=== PATIENT | female | born 1980 | race Caucasian/White ===

== ENCOUNTER 2016-09-12 21:36 | Emergency (ER) | payer OTHER ==
[~2016-09-12] VITALS: Ht 167.6 cm; Wt 107.8 kg
[2016-09-12 21:46] VITALS: TEMP 37.2; Ht 167.6 cm; Wt 107.8 kg
[2016-09-12] MEDS ORDERED: FLEXERIL HOME PACK 10 MG VIAL PO ONE (22:30)
[2016-09-12] MEDS ORDERED: PRED50TA PO (22:49)
[2016-09-12] MEDS ORDERED: CYCL10TA6 PO (22:49)
--- NOTE | 2016-09-12 22:49 | EMERGENCY ROOM VISIT NOTE ---
ED Visit Note First contact with patient: 21:53 Chief Complaint: Sever Middle Low Back Pain History of Present Illness: Patient is a 36-year-old female who presents to the emergency permit this evening for evaluation of her middle to low back pain. She reports a long-standing history of back pain issues. She was managed by her former primary care provider most recently with Percocet. She recently changed providers and reports that she was stopped from her narcotic pain medications. She has referral to pain management on the or 26 of September in the [place] where she is from. She reports that her pain has worsened which is made changes in position as well as sleeping difficult. She has tried over- the-counter medications for her symptoms. She reports no new trauma or injuries to her spine. She's had x-rays as well as an MRI within the past year. The patient rates her current discomfort as a 6/10. She denies any new symptoms. She denies any loss of control bowel/bladder saddle anesthesia. She denies any fevers, chills, abdominal pain, nausea, vomiting, abdominal pain, hematochezia, melena, hematuria, or dysuria. Medications: Reviewed and discussed with the patient. Allergies: NSAIDs, tramadol PMH: No pertinent past medical history. SHx: Patient is a 36-year-old female who lives locally. ROS: All pertinent positive and negative review of systems are appropriately documented in the History of Present Illness. Physical Exam: VITAL SIGNS - Vital signs and nursing notes were reviewed. GENERAL - 36-year-old female appearing her stated age and in noticeable discomfort throughout the exam. NECK - FROM of the cervical spine. ABDOMEN - Abdominal contour obese without pulsations or visible masses. BS normoactive all four quadrants. No tenderness, palpable masses, hepatosplenomegaly, or ascites noted. MUSCULOSKELETAL - ROM of the thoracolumbar spine region was limited secondary to patient's subjective discomfort. Pt was seated on the exam table. Pt made guarded movements when asked to change position. No step-off deformities were palpated down the thoracolumbar spines. Moderate subjective Tenderness to Palpation experienced at the level of the lumbar paraspinal muscle distribution. No reproducible tenderness to palpation across the iliac spine. NEUROLOGIC - REFLEXES: +2/4 patellar reflexes B/L. SENSORY: Spinothalamic tract was found to be intact with ability to discriminate sharp versus dull sensation at the level of hip joint down do the great toe. No sensory defects of the dorsal column were appreciated utilizing light touch for evaluation. CEREBELLAR: Pt able to perform rapid alternating movements of the feet. EXTREMITIES - Range of Motion - No tremors, ticks, or fasciculations of the lower extremities noticed during inspection. Pt had +5/5 strength appreciated bilaterally in the lower extremities against examiner's resistance. VASCULAR - Capillary refill of the great toe was brisk. No mottling or blanching of the extremities present. +3/5 dorsalis pedis pulses palpated bilaterally. ED Course: Patient was seen and evaluated by myself. I had a lengthy discussion with the patient regarding her ongoing management. She was provided a home pack for Flexeril as well as prednisone for breakthrough symptoms. She was provided prednisone and Flexeril for home. I had a lengthy discussion with the patient regarding continued management for her chronic pain condition. I'm not comfort provided the patient any further narcotic medication. The patient was educated on worrisome symptoms for return visit to the emergency department. Patient discharged home in good condition. In the evaluation and treatment of this patient the following differential diagnoses were considered: Cauda equina syndrome, discitis, HNP, sciatica, epidural abscess, psoas abscess, musculoskeletal strain, lumbar fracture, lumbar dislocation, lumbar subluxation, spondylolisthesis, spondylosis, or compression fracture. Given the patient's presentation and stated complaint, I did elect to perform the above-mentioned workup. The patient presents today with ongoing backache symptoms. In a conversation with the patient, the patient has recently been discontinued from her narcotic medications. She has chronic back pain issues. She has referral to pain management within the next several days. I'm not comfortable providing narcotic pain medications at this point. She is provided Flexeril as well as prednisone for home. She'll follow-up with her primary care provider or return for any changing/worsening symptoms. Patient discharged home afebrile and in good condition. Impression: Acute exacerbation of chronic low back pain Discharge Instructions: You have been treated in the Emergency Department for Back Pain. You have been prescribed Prednisone 50 mg to be taken orally once a day for the next 4 days. This is an anti-inflammatory medicine to be used to help minimize your symptoms. You should take the COMPLETE course of the medication. You have been prescribed Flexeril (cyclobenzaprine) 1-2 tabs orally, three times per day. Do NOT exceed 30 mg (6 tabs) per day. Take your first dose at bedtime as it can make you drowsy. Always take all medications as prescribed. For pain control, you can use the following bean-kfm-sgrfjkx medicines (if >12 yo): - Regular strength (325mg/tab) Tylenol (acetaminophen) 2 tabs every 4-6 hours as needed. Do not exceed 12 tablets in a 24 hour period. Avoid taking more than 4 grams (4000 mg) of Tylenol per day. This includes any other sources of acetaminophen you may take on a regular basis. - Regular strength (200 mg/tab) Advil (ibuprofen) 1-2 tabs every 4-6 hours as needed. Do not exceed a dose of 3200 mg per day. If this is an acute injury, ice can be applied to the area of pain for the first 3 days to help decrease pain and inflammation. After the first 3 days, a heating pad can be used over the area for continued soothing relief. You should schedule a follow-up appointment in 2-3 days with your Primary Care Provider for further evaluation and treatment of your back pain. Return to the Emergency Department if your current symptoms worsen despite treatment course outlined above, or if you develop any of the following symptoms : intractable pain despite aforementioned treatment course, loss of control of your bowel or bladder, numbness or tingling in your groin, or development of a fever. Current/Historical Medications Scheduled Cholecalciferol (Vitamin D), Unknown Dose PO 3XWK Cyclobenzaprine Hcl (Flexeril), 10 MG PO TID Ferrous Sulfate (Ferrous Sulfate), 650 MG PO BID Lurasidone Hcl (Latuda), 40 MG PO HS Prednisone (Prednisone), 50 MG PO DAILY Sertraline (Zoloft), 150 MG PO DAILY Allergies Coded Allergies: Aripiprazole (Verified Allergy, Severe, SEIZURES, 09/12/16) Bupropion (Verified Allergy, Severe, SEIZURES, 09/12/16) NSAIDs (Verified Adverse Reaction, Unknown, gastric bypass, 09/12/16) Tramadol (Verified Adverse Reaction, Unknown, gastric bypass, 09/12/16) Vital Signs Date Time Temp Pulse Resp B/P Pulse Ox O2 Delivery O2 Flow Rate FiO2 09/12/16 22:54 81 18 131/79 100 Room Air 09/12/16 21:46 37.2 88 20 153/87 100 Room Air Medications Administered Medications (Trade) Dose Ordered Sig/Connie Route Start Time Stop Time Status Last Admin Dose Admin Cyclobenzaprine HCl (FLEXERIL 10MG Home Pack) 1 homepack UD ONCE PO 09/12/16 22:30 09/12/16 22:31 DC 09/12/16 22:30 1 HOMEPACK Prednisone (PredniSONE TAB) 60 mg NOW STAT PO 09/12/16 22:26 09/12/16 22:28 DC 09/12/16 22:51 60 MG Departure Information Impression Primary Impression: Acute exacerbation of chronic low back pain Dispostion Home / Self-Care Condition GOOD Prescriptions Prednisone (Prednisone) 50 Mg Tab 50 MG PO DAILY for 4 Days, #4 TAB Prov: Dileep Forte PA-C 09/12/16 Cyclobenzaprine Hcl (FLEXERIL) 10 Mg Tab 10 MG PO TID for 5 Days, #15 TAB Prov: Dileep Forte PA-C 09/12/16 Referrals Anabel Jason PA-C (PCP) Patient Instructions My [facility] Additional Instructions You have been treated in the Emergency Department for Back Pain. You have been prescribed Prednisone 50 mg to be taken orally once a day for the next 4 days. This is an anti-inflammatory medicine to be used to help minimize your symptoms. You should take the COMPLETE course of the medication. You have been prescribed Flexeril (cyclobenzaprine) 1-2 tabs orally, three times per day. Do NOT exceed 30 mg (6 tabs) per day. Take your first dose at bedtime as it can make you drowsy. Always take all medications as prescribed. For pain control, you can use the following itir-cta-pcmuxae medicines (if >12 yo): - Regular strength (325mg/tab) Tylenol (acetaminophen) 2 tabs every 4-6 hours as needed. Do not exceed 12 tablets in a 24 hour period. Avoid taking more than 4 grams (4000 mg) of Tylenol per day. This includes any other sources of acetaminophen you may take on a regular basis. - Regular strength (200 mg/tab) Advil (ibuprofen) 1-2 tabs every 4-6 hours as needed. Do not exceed a dose of 3200 mg per day. If this is an acute injury, ice can be applied to the area of pain for the first 3 days to help decrease pain and inflammation. After the first 3 days, a heating pad can be used over the area for continued soothing relief. You should schedule a follow-up appointment in 2-3 days with your Primary Care Provider for further evaluation and treatment of your back pain. Return to the Emergency Department if your current symptoms worsen despite treatment course outlined above, or if you develop any of the following symptoms : intractable pain despite aforementioned treatment course, loss of control of your bowel or bladder, numbness or tingling in your groin, or development of a fever.
[2016-09-12 22:54] VITALS: BP 131/79; PULSE 81; O2SAT 100
[2016-09-12] MEDS ORDERED: SERT-234 PO (22:54)
[2016-09-12] MEDS ORDERED: FRRS300 PO (22:54)
[2016-09-12] MEDS ORDERED: CHOL100010 PO (22:54)
[2016-09-12] MEDS ORDERED: LURA40TA PO (22:54)
== END 2016-09-12 22:52 | disposition home or self-care (01) ==
LOC: C.EDB 21:38 → C.EDD 22:52
DX: M54.5 Low back pain (principal); G89.29 Other chronic pain; E66.9 Obesity, unspecified; Z79.899 Other long term (current) drug therapy; Z68.38 Body mass index [BMI] 38.0-38.9, adult

== ENCOUNTER 2016-10-31 23:14 | Emergency (ER) | payer OTHER ==
[~2016-10-31] VITALS: Ht 167.6 cm; Wt 109.4 kg
[~2016-10-31 23:14] MED LIST: CHOL100010 PO; FRRS300 PO; LURA40TA PO; SERT-234 PO
[2016-10-31 23:16] VITALS: TEMP 36.8; Ht 167.6 cm; Wt 109.4 kg
[2016-10-31] MEDS ORDERED: MoRPHine SULFATE 4 MG/ML 1 ML CARP\\VIAL IV STA (23:28)
[2016-10-31] MEDS ORDERED: ONDANSETRON INJ 2 MG/ML 2 ML VIAL IV STA (23:28)
[2016-10-31] MEDS ORDERED: SODIUM CHLORIDE 0.9% 1000ML 1,000 ML IV STA ×2 (23:28)
[2016-10-31] MEDS ORDERED: VANCOMYCIN IV STA (23:34)
[2016-10-31] MEDS ORDERED: PIPERACILLIN/TAZOBACTAM 4.5 GM/100ML D5W IV STA (23:34)
[2016-10-31] MEDS ORDERED: SODIUM CHLORIDE 0.9% IV STA (23:34)
[2016-10-31] MEDS ORDERED: OPTIRAY 320 IV PRN (23:45)
[2016-10-31] MEDS ORDERED: CYCL10TA6 PO (23:53)
[2016-11-01 00:30] LABS: ISTAT CREATININE 0.6 mg/dl (0.6-1.3); ISTAT HEMOGLOBIN 10.2 g/dl (12.0-16.0); ISTAT IONIZED CALCIUM 1.17 mmol/l (1.12-1.32)
[2016-11-01 00:32] VITALS: O2SAT 99
[2016-11-01 01:07] LABS: PREG INTERNAL NEGATIVE QC NEG CLEAR BACKGROUND; PREG INTERNAL POSITIVE QC POS CONTROL LINE
[2016-11-01 01:17] LABS: BASO % 0.6 %; BASO ABS # 0.03 K/uL (0-0.2); COMPLETE YES; HEMATOCRIT 31.6 % (37-47); IG% 0.2 %; LYMPH % 30.7 %; LYMPH ABS # 1.56 K/uL (1.2-3.4); MEAN CORPUSCULAR HGB CONC 30.4 g/dl (32-36); MONO % 9.6 %; NEUT % 55.9 %; PLATELET COUNT 318 K/uL (130-400); WHITE BLOOD COUNT 5.08 K/uL (4.8-10.8)
[2016-11-01 01:26] LABS: PARTIAL THROMBOPLASTIN RATIO 1.1; PROTHROMBIN TIME (PATIENT) 10.9 SECONDS (9.0-12.0)
[2016-11-01 01:36] LABS: BUN/CREATININE RATIO 20.4 (10-20); CALCIUM 8.3 mg/dl (8.5-10.1); CREATININE 0.53 mg/dl (0.60-1.20); POTASSIUM 4.1 mmol/L (3.5-5.1)
[2016-11-01 01:39] LABS: ALB/GLOB RATIO 0.7 (0.9-2)
[2016-11-01] MEDS ORDERED: PIPERACILLIN/TAZOBACTAM 4.5 GM/100ML D5W ONE (01:52)
[2016-11-01] MEDS ORDERED: OXYCODONE IR HOME PACK PO ONE (03:15)
[2016-11-01] MEDS ORDERED: AMOXICIL/CLAVU 875MG HOME PACK PO ONE (03:15)
[2016-11-01] MEDS ORDERED: AMOX875T PO (03:19)
--- NOTE | 2016-11-01 03:19 | EMERGENCY ROOM VISIT NOTE ---
History First contact with patient: 23:21 Chief Complaint: ABDOMINAL PAIN Stated Complaint: SEVERE LEFT SIDE ABDOMINAL PAIN Nursing Triage Summary: pt with gastric bypass surger in 2013. had skin removal surgery 4 weeks ago. had ALVERTO drain removed on Monday. has been having increased abdominal swelling and pain since. swelling and hardness at surgical site, mid abdomen. draining moderate amounts of clear/yellow fluid. History of Present Illness The patient is a 36 year old female who presents to the Emergency Room with complaints of fever, chills, severe abdominal pain with drainage from incisional site for the past day. Patient had skin removal from excess skin from gastric bypass 1 month ago. ALVERTO drain was removed 2 days ago. The surgeon is in [place]. No temperature was taken. She describes pain as aching, ranging in severity 8 out of 10. Throughout the abdomen. Nothing makes it better or worse. Patient denies chest pain, dyspnea, cough, congestion, back pain, urinary symptoms. She is tolerated by mouth fluids and food. Normal bowel movement. Review of Systems See HPI for pertinent positives & negatives. A total of 10 systems reviewed and were otherwise negative. Past Medical/Surgical History Gastric bypass Social History Smoking Status: Former Smoker Drug Use: none Marital Status: Housing Status: lives with family Current/Historical Medications Scheduled Cholecalciferol (Vitamin D), Unknown Dose PO 3XWK Ferrous Sulfate (Ferrous Sulfate), 650 MG PO BID Lurasidone Hcl (Latuda), 60 MG PO HS Sertraline (Zoloft), 150 MG PO DAILY Scheduled PRN Cyclobenzaprine Hcl (Flexeril), 10 MG PO BID PRN for Muscle Spasms Allergies Coded Allergies: Aripiprazole (Verified Allergy, Severe, SEIZURES, 10/31/16) Bupropion (Verified Allergy, Severe, SEIZURES, 10/31/16) NSAIDs (Verified Adverse Reaction, Unknown, gastric bypass, 10/31/16) Tramadol (Verified Adverse Reaction, Unknown, gastric bypass, 10/31/16) Physical Exam Vital Signs Date Time Temp Pulse Resp B/P Pulse Ox O2 Delivery O2 Flow Rate FiO2 11/01/16 02:03 74 18 132/61 100 Room Air 11/01/16 00:32 99 Room Air 11/01/16 00:29 78 20 120/62 99 10/31/16 23:16 36.8 92 20 141/90 100 Room Air Physical Exam VITALS: Vitals are noted on the nurse's note and reviewed by myself. Vital signs stable. GENERAL: Pleasant female, in no acute distress, nondiaphoretic, well-developed well-nourished. SKIN: Midline incision with serosanguineous drainage and wound culture was obtained with minimal erythema The~ skin was without rashes, erythema, edema, or bruising. There is no tenting of the skin. Capillary reflex less than 2 seconds. HEAD: Normocephalic atraumatic. EARS: External auditory canals clear, tympanic membranes pearly rizo without erythema or effusion bilaterally. EYES: Pupils equal round and reactive to light and accommodation. Conjunctivae without injection, sclerae without icterus. Extraocular movements intact. NOSE: Patent, turbinates without inflammation or discharge. MOUTH: Mucous membranes moist. Pharynx without erythema or exudate. Uvula midline. Airway patent. Tongue does not deviate. NECK: Supple without nuchal rigidity. No lymphadenopathy. No thyromegaly. Cervical spine is nontender. No JVD. HEART: Regular rate and rhythm without murmurs gallops or rubs. LUNGS: Clear to auscultation bilaterally without wheezes, rales or rhonchi. No dullness to percussion. No retractions or accessory muscle use. ABDOMEN: Positive bowel sounds x 4. Normal tympanic percussion. Soft, diffusely tender to palpation with increased pain around and midline incisional site with active drainage and wound cultures taken, without masses or organomegaly. Young sign negative. No guarding or rebound tenderness. No CVA tenderness MUSCULOSKELETAL: No muscle atrophy, erythema, or edema noted. NEURO: Patient was alert and oriented to person place and time. Normal sensation to light and sharp touch. No focal neurological deficits. Medical Decision & Procedures Laboratory Results 11/01/16 01:03 Red Blood Count 4.00, Mean Corpuscular Volume 79.0, Mean Corpuscular Hemoglobin 24.0, Mean Corpuscular Hemoglobin Concent 30.4, Mean Platelet Volume 9.0, Neutrophils (%) (Auto) 55.9, Lymphocytes (%) (Auto) 30.7, Monocytes (%) (Auto) 9.6, Eosinophils (%) (Auto) 3.0, Basophils (%) (Auto) 0.6, Neutrophils # (Auto) 2.84, Lymphocytes # (Auto) 1.56, Monocytes # (Auto) 0.49, Eosinophils # (Auto) 0.15, Basophils # (Auto) 0.03 11/01/16 01:03 Test 11/01/16 00:16 11/01/16 00:20 11/01/16 00:23 11/01/16 01:03 Bedside Hemoglobin 10.2 g/dl (12.0-16.0) Bedside Hematocrit 30 % (37-47) Bedside Sodium 142 mEq/L (135-144) Bedside Potassium 3.8 mEq/L (3.3-5.0) Bedside Chloride 103 mEq/L (101-112) Bedside Total CO2 29 mEq/l (24-31) Bedside Blood Urea Nitrogen 10 mg/dl (7-18) Bedside Creatinine 0.6 mg/dl (0.6-1.3) Bedside Glucose (other) 79 mg/dl (70-99) Bedside Ionized Calcium (Alyssa) 1.17 mmol/l (1.12-1.32) Human Chorionic Gonadotropin, Qual NEG (NEG) Bedside Lactic Acid Venous 0.53 mmol/L (0.90-1.70) White Blood Count 5.08 K/uL (4.8-10.8) Red Blood Count 4.00 M/uL (4.2-5.4) Hemoglobin 9.6 g/dL (12.0-16.0) Hematocrit 31.6 % (37-47) Mean Corpuscular Volume 79.0 fL (80-100) Mean Corpuscular Hemoglobin 24.0 pg (25-34) Mean Corpuscular Hemoglobin Concent 30.4 g/dl (32-36) Platelet Count 318 K/uL (130-400) Mean Platelet Volume 9.0 fL (7.4-10.4) Neutrophils (%) (Auto) 55.9 % Lymphocytes (%) (Auto) 30.7 % Monocytes (%) (Auto) 9.6 % Eosinophils (%) (Auto) 3.0 % Basophils (%) (Auto) 0.6 % Neutrophils # (Auto) 2.84 K/uL (1.4-6.5) Lymphocytes # (Auto) 1.56 K/uL (1.2-3.4) Monocytes # (Auto) 0.49 K/uL (0.11-0.59) Eosinophils # (Auto) 0.15 K/uL (0-0.5) Basophils # (Auto) 0.03 K/uL (0-0.2) RDW Standard Deviation 56.0 fL (36.4-46.3) RDW Coefficient of Variation 19.1 % (11.5-14.5) Immature Granulocyte % (Auto) 0.2 % Immature Granulocyte # (Auto) 0.01 K/uL (0.00-0.02) Prothrombin Time 10.9 SECONDS (9.0-12.0) Prothromb Time International Ratio 1.0 (0.9-1.1) Activated Partial Thromboplast Time 29.1 SECONDS (21.0-31.0) Partial Thromboplastin Ratio 1.1 Anion Gap 7.0 mmol/L (3-11) Est Creatinine Clear Calc Drug Dose 183.7 ml/min Estimated GFR () 141.6 Estimated GFR (Non- 122.2 BUN/Creatinine Ratio 20.4 (10-20) Calcium Level 8.3 mg/dl (8.5-10.1) Total Bilirubin 0.1 mg/dl (0.2-1) Aspartate Amino Transf (AST/SGOT) 98 U/L (15-37) Alanine Aminotransferase (ALT/SGPT) 78 U/L (12-78) Alkaline Phosphatase 156 U/L (45-117) Total Protein 6.5 gm/dl (6.4-8.2) Albumin 2.6 gm/dl (3.4-5.0) Globulin 3.9 gm/dl (2.5-4.0) Albumin/Globulin Ratio 0.7 (0.9-2) Medications Administered Medications (Trade) Dose Ordered Sig/Connie Route Start Time Stop Time Status Last Admin Dose Admin Sodium Chloride 1,000 ml @ 999 mls/hr Q1H1M STAT IV 10/31/16 23:28 11/01/16 00:28 DC 11/01/16 00:28 999 MLS/HR Sodium Chloride (Nss 1000ml) 1,000 ml @ 125 mls/hr Q8H STAT IV 10/31/16 23:28 11/01/16 07:27 11/01/16 01:54 125 MLS/HR Morphine Sulfate (MoRPHine SULFATE INJ) 4 mg NOW STAT IV 10/31/16 23:28 10/31/16 23:31 DC 11/01/16 00:34 4 MG Ondansetron HCl (Zofran Inj) 4 mg NOW STAT IV 10/31/16 23:28 10/31/16 23:31 DC 11/01/16 00:34 4 MG Piperacillin Sod/ Tazobactam Sod 4.5 gm 4.5 gm NOW STAT IV 10/31/16 23:34 10/31/16 23:39 DC 11/01/16 01:53 4.5 GM Vancomycin HCl/ Sodium Chloride (Vancomycin Inj/ Nss 500ml) 554.7 ml @ 200 mls/hr ONE STAT IV 10/31/16 23:34 11/01/16 02:20 DC 11/01/16 00:23 200 MLS/HR ED Course Prior records/ancillary studies reviewed. Triage Nursing notes reviewed. Additional history obtained from family. The patient's history was concerning for abdominal pain. Differential diagnosis: Etiologies such as postsurgical complication, intra-abdominal abscess, appendicitis, diverticulitis, PUD, biliary pathology, UTI, pancreatitis, obstruction, mesenteric ischemia, aortic pathology, infections, inflammatory bowel disease, renal colic, as well as others were entertained. Physical examination findings: As above. ER treatment provided: Zosyn, vancomycin, IV fluids On reassessment the patient felt better. Diagnostics interpreted by me: The labs revealed negative lactic acid Mild anemia, wound culture pending Imaging studies: CT ABDOMEN & PELVIS: Post surgical changes within the anterior abdomen and pelvis with a large fluid collection seen extending from the upper abdomen to the pelvis.There is an additional tiny fluid collection not along the left flank soft tissues. Findings may represent resolving hematoma or seroma with abscess not excluded. Correlate clinically to exclude cellulitis. Mild intra-and extra hepatic bile duct dilatation likely second to prior cholecystectomy. Mild splenomegaly. Pancreas, and adrenal glands are unremarkable. The kidneys, ureters and urinary bladder are unremarkable. The uterus and adnexa are unremarkable. The appendix is within normal limits. Evidence of Lizbeth-en-Y gastric bypass surgery. No acute osseous abnormality. Radiologist: Baltazar Mistry MD Chest x-ray with no acute consolidation, pneumothorax or free air per my interpretation Consultation: A consultation was placed with the surgeon at [place], Dr. Paredes. The case was discussed and diagnostics were reviewed. He recommends having the patient follow-up tomorrow and he'll call for an appointment and states most likely the patient is reevaluated fluid. Patient was restarted on Augmentin and advised to wear her abdominal binder. Exam and history seem consistent with abdominal pain most likely from seroma. Patient had negative lactic acid. No white count. The patient will be seen tomorrow by her surgeon which is in 5 hours, I felt this is reasonable. She was afebrile and nontoxic. She was well-appearing. Patient was agreeable to this. She is advised to bring her is CT disc to her appointment for her surgeon 's review. She is advised return to the ER immediately for fever, pain, vomiting, worsening signs or symptoms or as needed. By the evaluation outlined above emergent etiologies such as appendicitis, diverticulitis, PUD, biliary pathology, UTI, pancreatitis, obstruction, mesenteric ischemia, aortic pathology, inflammatory bowel disease, renal colic, as well as others were deemed relatively unlikely. The pt informed about the findings as listed above. All questions were answered and pleased with the treatment. Return instructions were outlined and the patient was discharged in stable condition. Outpatient prescription management: Augmentin Referral: The patient was referred back to their surgeon for follow-up in a few hours for a recheck of the current condition. Case reviewed with my attending Medical Decision As above Impression Primary Impression: Acute postoperative pain of abdomen Additional Impression: Abdominal wall seroma Departure Information Dispostion Home / Self-Care Condition GOOD Referrals Anabel Jason PA-C (PCP) Patient Instructions My [facility] Additional Instructions DO NOT drive, drink alcohol, operate machinery, or perform dangerous activities today. You were given medications in the ER that can affect your ability to safely function or operate a vehicle. Daily dressing changes to your incisional site. Continue to wear your abdominal binder. Oxycodone (OxyIR) 5mg: Take 1-2 pills every four hours for breakthrough pain. Avoid alcohol, operating machinery or dangerous equipment, working on ladders or roofs, DRIVING, or situations where being under the influence may be dangerous. It is recommended to use an snrm-jmb-pybubaj stool softener such as Colace, 100mg twice daily while taking this medication to avoid constipation. Amoxicillin Clavulanate (Augmentin) 875mg: Take one pill twice daily for 10 days. All antibiotics can cause diarrhea. If this occurs and you feel worse or it does not resolve in 1-2 days follow up with your doctor or return to the Emergency Department as this could be signs of serious underlying problems. Any medication can cause an allergic reaction, stop the pills immediately and return to the ER for rash, hives, breathing difficulties, or swelling. Acetaminophen(Tylenol) may be used for fever or pain. Use 1000mg every six hours as needed. Avoid using more than 3000mg in a 24 hour period. Rest and drink plenty of fluids. Continue current medications. Return to the ER for severe pain, persistent fevers, spreading redness, or any worsening of your condition. Follow up with your surgeon today for a recheck of the current condition. There departmental secretary will call you this morning for your appointment. Bring your disc to your appointment. Problem Qualifiers
[2016-11-01 03:58] VITALS: BP 132/66; PULSE 73; O2SAT 100
--- NOTE | 2016-11-01 06:32 | DIAGNOSTIC IMAGING REPORT ---
CHEST ONE VIEW PORTABLE CLINICAL HISTORY: Sepsis dyspnea COMPARISON STUDY: No previous studies for comparison. FINDINGS: The bones soft tissues and hemidiaphragms are normal. The cardiomediastinal silhouette is normal. The lungs are clear. The pulmonary vasculature is normal. IMPRESSION: Negative chest. Electronically signed by: Kirk Alanis M.D. 11/01/2016 6:31 AM Dictated Date/Time: 11/01/2016 6:31 AM
--- NOTE | 2016-11-01 06:49 | DIAGNOSTIC IMAGING REPORT ---
ABDOMEN AND PELVIS CT WITH IV CONTRAST CT DOSE: 1313.76 mGy.cm HISTORY: Pain abd pain, recent pannus removal and ALVERTO drain removal TECHNIQUE: Multiaxial CT images of the abdomen and pelvis were performed following the use of intravenous contrast. COMPARISON STUDY: None. FINDINGS: Lung bases are clear. Evidence for prior gastric bypass type procedure. Prior cholecystectomy. Slight biliary ductal prominence possibly postoperative. Spleen is top limits normal terms of size. Findings of a fluid collection along the anterior abdominal wall at site of a prior patient's prior incision line. This is greatest transaxial dimensions of 9 cm with a greatest cephalocaudal dimension of approximately 15 cm. There is a small secondary fluid collection along the left lower anterior abdominal wall. Findings of generalized infiltrative change of the fat of the lower abdominal wall anteriorly. Kidneys enhance uniformly. There are negative for hydronephrosis. The bowel pattern is considered nonobstructive. Uterus is midline and anteflexed. There is a 2 cm left ovarian cyst. There is small amount of free physiologic fluid within the pelvic cul-de-sac. IMPRESSION: 1. 1 and possibly 2 fluid collections anterior abdominal wall associated with a midline incision as well as prior abdominal wall surgical change. 2. Generalized infiltrative change of the lower anterior abdominal wall possibly postoperative. 3. Diagnostic considerations include hematoma, postoperative seroma, the possibility of abscess and secondary cellulitis impossible to completely exclude. Electronically signed by: Kirk Alanis M.D. 11/01/2016 6:48 AM Dictated Date/Time: 11/01/2016 6:44 AM
--- NOTE | 2016-11-03 15:46 | Pharmacy Progress Note ---
ED Pharmacist Culture FollowUp Date of Service: November 03, 2016. Patient was seen in ER on 10/31/16 for c/o L sided abdominal pain. She has h/o gastric bypass surgery in the past and is s/p edgar de lis panniculectomy on 10/03/16. The patient reported having ALVERTO drain removed 2 days prior to presentation to ER. Patient reports increased pain and swelling since ALVERTO removal. PE findings per provider's note: + swelling, + tenderness @ surgical site, + serosanguinous drainage, minimal erythema No leukocytosis was noted on CBC CT imaging revealed: 1 and possibly 2 fluid collections anterior abdominal wall associated with a midline incision as well as prior abdominal wall surgical change The patient's surgeon, Dr Paredes ([facility]) was consulted by provider and the patient was to be discharged w/ f/u the following day. She was discharged on Augmentin 875mg BID x 10 days. Wound cx resulted today: growing CoN Staph, few in number plus low counts of probable skin wilber. Augmentin may cover the CoN Staph if this is an infectious organism and not skin wilber, however coverage not reliable as only 54% sensitive to Augmentin on latest antibiogram. I reviewed [facility] records to see if the patient has f/u with Dr Paredes. The patient was seen today. Seromas were drained in the office. No fever was noted. There was no mention of cellulitis or concerns for cellulitis on provider's note. I did leave a message on the patient's answering machine ([phone]) for a clinical f/u phone call.
== END 2016-11-01 04:01 | disposition home or self-care (01) ==
LOC: C.EDB 23:15 → C.EDA 11-01 04:01
DX: G89.18 Other acute postprocedural pain (principal); T81.4XXA Infection following a procedure, initial encounter; X58.XXXA Exposure to other specified factors, initial encounter; Z87.891 Personal history of nicotine dependence